=== PATIENT | female | born 1980 | race Hispanic/Latino ===

== ENCOUNTER 2021-08-24 17:43 | Emergency (ER) | payer OTHER ==
[~2021-08-24] VITALS: Ht 162.6 cm; Wt 74.8 kg
[2021-08-24] MEDS ORDERED: DIPHENHYDRAMINE HCL 25 MG CAP PO STA (17:51)
[2021-08-24] MEDS ORDERED: PREDNISONE 20 MG TAB PO STA (17:51)
[2021-08-24] MEDS ORDERED: TRAMADOL HCL 50 MG TAB PO STA (17:51)
[2021-08-24] MEDS ORDERED: ULTRAM50 MG PO (19:48)
[2021-08-24] MEDS ORDERED: PREDNISONE20 MG PO (19:48)
[2021-08-24 20:16] VITALS: BP 130/69
== END 2021-08-24 19:56 | disposition home or self-care (01) ==
LOC: ER 17:58
DX: S00.261A Insect bite (nonvenomous) of right eyelid and periocular area, initial encounter (principal); Y92.007 Garden or yard of unspecified non-institutional (private) residence as the place of occurrence of the external cause
CPT/HCPCS: 99283; J7512